=== PATIENT | female | born 1945 | race Caucasian/White ===

== ENCOUNTER 2023-05-03 08:39 | Observation (INO) ==
[2023-05-03 09:24] LABS: ABS Lymphocytes 0.7 10^3/uL (1.0-4.8); ABS Monocytes 0.1 10^3/uL (0.0-0.9); ABS Neutrophils 0.7 10^3/uL (1.5-7.6); ABS Nucleated RBC 0.03 10^3/ul; Eosinophil % 0.4 %; Hematocrit 14.8 % (35-45); Hemoglobin 5.2 g/dL (11.5-14.3); Lymphocyte % 48.1 %; Mean Corpuscular Hemoglobin 50.8 pg (27-33); Mean Corpuscular Hgb Conc 35.1 g/dL (31-36); Mean Corpuscular Volume 144.8 fL (80-97); Mean Platelet Volume 7.4 fL (7.5-11.2); Platelet Count 184 10^3/uL (150-450); Red Blood Count 1.02 10^6/uL (3.63-4.92); Red Cell Distribution Width 17.5 % (12-17); White Blood Count 1.5 10^3/uL (3.8-11.8)
[2023-05-03 09:33] LABS: Activated Partial Thrombo Time 24.9 seconds (26.0-38.0); INR 1.12 (0.83-1.13)
[2023-05-03 09:38] LABS: Albumin/Globulin Ratio 1.8 (1-3); Calcium 9.4 mg/dL (8.6-10.3); Creatinine, Serum 1.51 mg/dL (0.51-0.95); Globulin 2.2 g/dL (2-4); Potassium 3.2 mmol/L (3.5-5.0); Total Bilirubin 1.5 mg/dL (0.2-1.0); Total Protein 6.2 g/dL (6.4-8.9); eGFR CKD-EPI 34.9 (>60)
[2023-05-03 09:47] LABS: Rapid COVID-19 Molecular Undetected (Undetected)
[2023-05-03 10:49] LABS: Influenza A Molecular Negative (Negative); Influenza B Molecular Negative (Negative)
[2023-05-03] MEDS ORDERED: Potassium Chlor 20 meq TAB.ER PO ONE (11:02)
[2023-05-03 13:10] LABS: Ferritin 331.1 ng/mL (11-307)
[2023-05-03 22:21] LABS: Hematocrit 21.1 % (35-45); Hemoglobin 7.6 g/dL (11.5-14.3); Mean Corpuscular Hemoglobin 41.5 pg (27-33); Mean Corpuscular Hgb Conc 36.1 g/dL (31-36); Platelet Count 173 10^3/uL (150-450); Red Blood Count 1.83 10^6/uL (3.63-4.92); Red Cell Distribution Width 35.1 % (12-17); White Blood Count 2.3 10^3/uL (3.8-11.8)
[2023-05-03 22:22] LABS: ABS Neutrophils 0.8 10^3/uL (1.5-7.6)
[2023-05-03 23:05] LABS: ABS Lymphocytes 1.3 10^3/uL (1.0-4.8); ABS Monocytes 0.2 10^3/uL (0.0-0.9); ABS Nucleated RBC 0.03 10^3/ul; Eosinophil % 0.7 %; Lymphocyte % 57.2 %; Nucleated Red Blood Cells % 1.4 %/100WBC (0.0-0.8)
[2023-05-03 23:06] LABS: Anisocytosis 3+; Polychromasia 1+
[2023-05-04 07:02] LABS: Calcium 9.4 mg/dL (8.6-10.3); Creatinine, Serum 1.22 mg/dL (0.51-0.95); Potassium 3.5 mmol/L (3.5-5.0); eGFR CKD-EPI 45.1 (>60)
[2023-05-04 07:19] LABS: ABS Lymphocytes 1.3 10^3/uL (1.0-4.8); ABS Monocytes 0.2 10^3/uL (0.0-0.9); ABS Neutrophils 0.7 10^3/uL (1.5-7.6); ABS Nucleated RBC 0.02 10^3/ul; Eosinophil % 0.5 %; Hematocrit 22.6 % (35-45); Hemoglobin 7.9 g/dL (11.5-14.3); Mean Corpuscular Hemoglobin 40.9 pg (27-33); Mean Corpuscular Hgb Conc 35.1 g/dL (31-36); Mean Corpuscular Volume 116.3 fL (80-97); Nucleated Red Blood Cells % 1.1 %/100WBC (0.0-0.8); Platelet Count 173 10^3/uL (150-450); Red Blood Count 1.94 10^6/uL (3.63-4.92); Red Cell Distribution Width 35.2 % (12-17); White Blood Count 2.2 10^3/uL (3.8-11.8)
[2023-05-04 07:20] LABS: Anisocytosis 3+; Macrocytosis 2+
[2023-05-04 10:26] VITALS: BP 108/46
== END 2023-05-04 13:00 | disposition home or self-care (01) ==
LOC: EDHOLD 08:39 → ED 08:39 → MEDTELE 13:29
PROVIDERS: ADMIT Student in an Organized Health Care Education/Training Program; ATTEND Student in an Organized Health Care Education/Training Program